=== PATIENT | female | born 2000 | race American Indian/Alaskan Native ===

== ENCOUNTER 2021-01-05 15:21 | Emergency (ER) | payer OTHER ==
[2021-01-05 17:01] VITALS: BP 106/72
[2021-01-05] MEDS ORDERED: diphenhydrAMINE 25 MG/10 ML ORAL LIQUID PO ONE (18:25)
[2021-01-05] MEDS ORDERED: ACETAMINOPHEN 500 MG TAB PO ONE (18:25)
[2021-01-05] MEDS ORDERED: IBUPROFEN 400 MG TAB PO ONE (18:25)
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
--- NOTE | 2021-01-06 10:51 | Electrocardiograph Report ---
[facility] Test Date: 2021-01-05 Test Time: 19:11:04 Pat Name: JUAN HESS Department: Room: Gender: F Document Control Associate: ORLIN : 2000 Requested By: MAGNOLIA SIDDIQUI Order Number: [id number] Reading MD: David Bright Measurements Intervals [place] Rate: 77 P: -18 [place]: 137 QRS: 67 QRSD: 60 T: 52 QT: 352 QTc: 400 Interpretive Statements Sinus rhythm nonspecific st-t No previous ECG available for comparison Electronically Signed On 01-06-2021 10:51:12 EDT by David Bright
== END 2021-01-05 19:38 | disposition home or self-care (01) ==
LOC: ED 15:21
DX: F41.9 Anxiety disorder, unspecified (principal); Z00.00 Encounter for general adult medical examination without abnormal findings; R07.89 Other chest pain; R51.9 Headache, unspecified; M54.2 Cervicalgia; R11.10 Vomiting, unspecified; J45.909 Unspecified asthma, uncomplicated
CPT/HCPCS: 71046; 93005; 99284; Q0163